=== PATIENT | female | born 1965 | race Caucasian/White ===

== ENCOUNTER 2016-08-10 18:44 | Emergency (ER) | payer OTHER ==
--- NOTE | 2016-08-10 21:27 | ED NURSING NOTES ---
Clinical Report - Nurses [facility] [address] [place] [address] 08/10/2016 18:45 Patient: MICHAEL VEGA TRIAGE Triage time 1845. Acuity: LEVEL 4. Chief Complaint: INJURY TO RIGHT ANKLE. --18:58 Giovana Garcia R.N. 18:54 08/10/16. BP: 149/82. HR: 84. RR: 18. O2 saturation: 100%. Temp: 98.2 F. Pain level now 10. --18:58 Giovana Garcia R.N. Weight: 99.7 kg stated. Height/Length: 62.5 inches Per Patient. BMI: 39.6. --18:54 Giovana Garcia R.N. Medications Advil 800mg at 1700. --18:58 Giovana Garcia R.N. Immatrex last night. --18:58 Giovana Garcia R.N. Allergies No Known Drug Allergy. --18:57 Giovana Garcia R.N. History Arrived by private vehicle. Historian: patient. Accompanied by friend. Primary physician (jorge). Mechanism of injury: sustained a twisting injury. Mechanism of injury: fell (down 2 steps around 12 noon today). She has had numbness, tingling, and trouble walking. PAST MEDICAL HX: Last normal menstrual period- jun (nancy menopausal ). ( migranes). SURGERY HX: ( laparoscopy). SOCIAL HX: Never smoker. Occasional alcohol use. No drug use. --18:58 Giovana Garcia R.N. PROBLEMS: no known problems. Interventions ID band on patient. To treatment room. --18:58 Giovana Garcia R.N. PHYSICAL ASSESSMENT 19:00 08/10/16. To room via wheelchair. GENERAL / NEURO / PSYCH: Oriented X 4. Alert. Appears in pain. EXTREMITIES: Limited ROM present. Capillary refill is less than 2 seconds in the extremities. Extremity pulses are within normal limits. Pain with weight bearing. She was unable to bear weight. Right ankle: tenderness and swelling. Limited ROM. SKIN: Skin is warm. --19:00 Giovana Garcia R.N. NURSING PROGRESS NOTES 18:59 08/10/16. Cold pack applied. --18:59 Giovana Garcia R.N. The patient is calm and resting quietly. GENERAL / NEURO / PSYCH: Alert. Oriented X 4. RESPIRATORY: No respiratory distress. SKIN: Skin is warm and dry. Two patient identifiers checked. Call light placed in reach. Bed placed in lowest position. Brakes of bed on. Patient ready for evaluation- chart flagged. --19:44 Federico Rodney R.N. 19:42 08/10/16. BP: 134/67. HR: 101. RR: 16. O2 saturation: 95%. Pain level now: 02/13. --19:44 Federico Rodney R.N. 21:55. Chilo bandage applied to right ankle by [employer]; distal pulses intact, sensation intact and motor function within normal limits (by [facility] tech). --22:01 Federico Rodney R.N. 21:59. Patient fit with crutches (by [facility] tech). --22:01 Federico Rodney R.N. 22:04. The patient is calm and resting quietly. GENERAL / NEURO / PSYCH: Alert. Oriented X 4. RESPIRATORY: No respiratory distress. SKIN: Skin is warm and dry. --22:11 Federico Rodney R.N. DISPOSITION / DISCHARGE Departure time: 22:09. Condition at departure: stable. ( Patient assisted into and wheeled to parking lot). No learning barriers present. Discharge instructions provided and reviewed with the patient. Reviewed medication(s) side effects, precautions, dosing and course information. Prescription(s) given to the patient. Patient verbalized understanding. Written instructions provided in Yoruba. The patient was discharged home and accompanied by family. She left the Emergency Department ambulatory and via private vehicle. Family member driving. FALL RISK ASSESSMENT: Fall risk assessment completed. No fall risk identified. --22:10 Federico Rodney R.N. 21:46 08/10/16. BP: 114/68. HR: 88. RR: 16. O2 saturation: 98% on room air. Pain level now: 11/13. --22:10 Federico Rodney R.N. Locked/Released at 08/10/2016 22:15 by Federico Rodney R.N.
--- NOTE | 2016-08-10 21:27 | ED CLINICAL REPORT ---
Clinical Report - Physicians/Mid Levels [facility] [address] [place] [address] 08/10/2016 18:45 Patient: MICHAEL VEGA Time Seen: 19:39; initial patient contact, initial documentation, patient care assumed. Arrived- By private vehicle. Historian- patient. HISTORY OF PRESENT ILLNESS Chief Complaint: Injury to the right ankle. The injury happened today. Occurred at home. The patient slipped and sustained a twisting injury while stepping down. Patient is experiencing moderate pain. Patient denies injury to the head or neck. No other injury. REVIEW OF SYSTEMS The patient complains of pain on weight bearing. She has had swelling,, tingling, and numbness. No weakness or skin laceration. All systems otherwise negative, except as recorded above. PAST HISTORY Negative. SOCIAL HISTORY Never smoker. Occasional alcohol use. No drug use. No recent travel. Is a local resident. FAMILY HISTORY No significant family medical history. ADDITIONAL NOTES The nursing notes have been reviewed with agreement regarding the chief complaint, HPI, ROS, PMH and patient medications and allergies. PHYSICAL EXAM Vital Signs: 08/10/2016 18:54 BP: 149/82. HR: 84. RR: 18. O2 saturation: 100%. Temp: 98.2 F. Have been reviewed as normal and appear to be correct. Appearance: Alert. Oriented X3. No acute distress. Head: Head atraumatic. Eyes: Pupils equal, round and reactive to light. Eyes normal inspection. Respiratory: No respiratory distress. Skin: Skin intact. Skin warm and dry. Extremities: Ankle injury present. Right lateral ankle: moderate tenderness and swelling of the lateral malleolus. Limited ROM (diminished plantar flexion, dorsiflexion, inversion and eversion). Neurovascular intact distally. No ligamentous laxity present. No joint effusion. No erythema, laceration, abrasion, ecchymosis or puncture wound. No foreign body or deformity. No foot injury. Foot and ankle exam otherwise negative. Extremities otherwise negative. Gait: Abnormal gait. Gait not tested due to pain. Neuro, Vascular and Tendons: Vascular status intact. Sensation intact. Motor intact. Tendon function intact. Neuro: Oriented X 3. No motor deficit. No sensory deficit. Note: isolated injury to ankle. LABS, X-RAYS, AND EKG X-Rays: X-rays are normal and reveal no acute disease (and reviewed by dr troy). Right ankle negative. The X-rays were independently viewed by me. Rt Ankle X-ray: (IMPRESSION: 1. Soft tissue swelling laterally. Electronically Final signed by:Shoaib Obregon MD 08/10/2016 9:44:59 PM). PROGRESS AND PROCEDURES Patient counseled in person regarding the patient's stable condition, test results and diagnosis. 2121. Differential Diagnosis: Other possible considerations: sprain, fx, dislocation. Above considerations are based on history, physical exam and X-Ray data. Differential diagnosis was discussed with patient. Disposition: Discharged home in good and improved condition (21:27). Condition: good and stable. CLINICAL IMPRESSION Sprain of the tibiofibular ligament of the right ankle. INSTRUCTIONS Apply ice for 20 minutes four times a day for two days until better. Don't apply ice directly to skin. Use crutches as needed. Wear elastic wrap (Chilo wrap) as directed for one weeks until better. Elevate affected areas above chest level for two days until better. Warnings: GENERAL WARNINGS: Return or contact your physician immediately if your condition worsens or changes unexpectedly, if not improving as expected, or if other problems arise. Specifically return if problem worsens. Prescription Medications: Motrin 800 mg tablets: take 1 tablet orally every 8 hours as needed for pain. Dispense thirty (30). No refills. Substitution is permissible. Percocet 5 mg/325 mg: take 1 tablet orally every 6 hours as needed for pain. Dispense fifteen (15). No refills. Substitution is permissible. Follow-up: Follow up with your doctor in about one week as needed. Call for an appointment. Summary of care provided to patient. Understanding of the discharge instructions verbalized by patient. (Electronically signed by Elissa Dahl A.R.N.P. 08/10/2016 22:40)
--- NOTE | 2016-08-10 21:27 | ED NURSING NOTES ---
Clinical Report - Nurses [facility] [address] [place] [address] 08/10/2016 18:45 Patient: MICHAEL VEGA TRIAGE Triage time 1845. Acuity: LEVEL 4. Chief Complaint: INJURY TO RIGHT ANKLE. --18:58 Giovana Garcia R.N. 18:54 08/10/16. BP: 149/82. HR: 84. RR: 18. O2 saturation: 100%. Temp: 98.2 F. Pain level now 10. --18:58 Giovana Garcia R.N. Weight: 99.7 kg stated. Height/Length: 62.5 inches Per Patient. BMI: 39.6. --18:54 Giovana Garcia R.N. Medications Advil 800mg at 1700. --18:58 Giovana Garcia R.N. Immatrex last night. --18:58 Giovana Garcia R.N. Allergies No Known Drug Allergy. --18:57 Giovana Garcia R.N. History Arrived by private vehicle. Historian: patient. Accompanied by friend. Primary physician (jorge). Mechanism of injury: sustained a twisting injury. Mechanism of injury: fell (down 2 steps around 12 noon today). She has had numbness, tingling, and trouble walking. PAST MEDICAL HX: Last normal menstrual period- jun (nancy menopausal ). ( migranes). SURGERY HX: ( laparoscopy). SOCIAL HX: Never smoker. Occasional alcohol use. No drug use. --18:58 Giovana Garcia R.N. PROBLEMS: no known problems. Interventions ID band on patient. To treatment room. --18:58 Giovana Garcia R.N. PHYSICAL ASSESSMENT 19:00 08/10/16. To room via wheelchair. GENERAL / NEURO / PSYCH: Oriented X 4. Alert. Appears in pain. EXTREMITIES: Limited ROM present. Capillary refill is less than 2 seconds in the extremities. Extremity pulses are within normal limits. Pain with weight bearing. She was unable to bear weight. Right ankle: tenderness and swelling. Limited ROM. SKIN: Skin is warm. --19:00 Giovana Garcia R.N. NURSING PROGRESS NOTES 18:59 08/10/16. Cold pack applied. --18:59 Giovana Garcia R.N. The patient is calm and resting quietly. GENERAL / NEURO / PSYCH: Alert. Oriented X 4. RESPIRATORY: No respiratory distress. SKIN: Skin is warm and dry. Two patient identifiers checked. Call light placed in reach. Bed placed in lowest position. Brakes of bed on. Patient ready for evaluation- chart flagged. --19:44 Federico Rodney R.N. 19:42 08/10/16. BP: 134/67. HR: 101. RR: 16. O2 saturation: 95%. Pain level now: 02/13. --19:44 Federico Rodney R.N. 21:55. Chilo bandage applied to right ankle by [employer]; distal pulses intact, sensation intact and motor function within normal limits (by [facility] tech). --22:01 Federico Rodney R.N. 21:59. Patient fit with crutches (by [facility] tech). --22:01 Federico Rodney R.N. 22:04. The patient is calm and resting quietly. GENERAL / NEURO / PSYCH: Alert. Oriented X 4. RESPIRATORY: No respiratory distress. SKIN: Skin is warm and dry. --22:11 Federico Rodney R.N. DISPOSITION / DISCHARGE Departure time: 22:09. Condition at departure: stable. ( Patient assisted into and wheeled to parking lot). No learning barriers present. Discharge instructions provided and reviewed with the patient. Reviewed medication(s) side effects, precautions, dosing and course information. Prescription(s) given to the patient. Patient verbalized understanding. Written instructions provided in Maltese. The patient was discharged home and accompanied by family. She left the Emergency Department ambulatory and via private vehicle. Family member driving. FALL RISK ASSESSMENT: Fall risk assessment completed. No fall risk identified. --22:10 Federico Rodney R.N. 21:46 08/10/16. BP: 114/68. HR: 88. RR: 16. O2 saturation: 98% on room air. Pain level now: 11/13. --22:10 Federico Rodney R.N. Locked/Released at 08/10/2016 22:15 by Federico Rodney R.N.
--- NOTE | 2016-08-10 21:28 | ED ORDER SUMMARY ---
..... Patient: MICHAEL VEGA OrderSheet [facility] VisitID: [id number] [address] [place] [address] 51y, F Registration Date/Time: 08/10/2016 ORDER SHEET Weight: 99.7 kg (stated) Allergies: No Known Drug Allergy GENERAL ORDERS: Ankle 3 or 4V Right Urgent (18:59 08/10/2016 DDean R.N. per protocol) (19:14 RFay) Crutches (if needed) (21:28 08/10/2016 HBivens A.R.N.P.) (Ack 21:47 CHagerty ER Counselor Camp) (21:55 CHagerty ER Counselor Camp) Chilo Wrap (21:28 08/10/2016 HBivens A.R.N.P.) (Ack 21:47 CHagerty ER Counselor Camp) (21:55 CHagerty ER Counselor Camp) MEDICATION ORDERS: IV FLUIDS: ORDER SHEET NOTES: [Electronically signed by Federico Rodney R.N. (22:15 08/10/2016)] [Electronically signed by Elissa DahlR.N.P. (22:40 08/10/2016)] [Electronically locked/signed by Federico Rodney R.N. (22:15 08/10/2016)]
--- NOTE | 2016-08-10 21:28 | ED ORDER SUMMARY ---
..... Patient: MICHAEL VEGA OrderSheet [facility] VisitID: [id number] [address] [place] [address] 51y, F Registration Date/Time: 08/10/2016 ORDER SHEET Weight: 99.7 kg (stated) Allergies: No Known Drug Allergy GENERAL ORDERS: Ankle 3 or 4V Right Urgent (18:59 08/10/2016 DDean R.N. per protocol) (19:14 RFay) Crutches (if needed) (21:28 08/10/2016 HBivens A.R.N.P.) (Ack 21:47 CHagerty ER Mission Assessment Specialist) (21:55 CHagerty ER Mission Assessment Specialist) Chilo Wrap (21:28 08/10/2016 HBivens A.R.N.P.) (Ack 21:47 CHagerty ER [facility] Assessment Specialist) (21:55 CHagerty ER [facility] Assessment Specialist) MEDICATION ORDERS: IV FLUIDS: ORDER SHEET NOTES: [Electronically signed by Federico Rodney R.N. (22:15 08/10/2016)] [Electronically signed by Elissa DahlR.N.P. (22:40 08/10/2016)] [Electronically locked/signed by Federico Rodney R.N. (22:15 08/10/2016)]
--- NOTE | 2016-08-10 21:45 | DIAGNOSTIC IMAGING REPORT ---
PROCEDURE: XR ANKLE 3 OR 4 VIEWS - RIGHT INDICATION: TRAUMA/INJURY TECHNIQUE: Four views. COMPARISON: None. FINDINGS: No fracture or dislocation. Normal ankle mortise. Prominent soft tissue swelling laterally. IMPRESSION: 1. Soft tissue swelling laterally.
--- NOTE | 2016-08-10 22:40 | ED MED RECONCILIATION SUMMARY ---
Patient: MICHAEL VEGA Medication Reconciliation Report [facility] VisitID: [id number] [address] [place] [address] 51y, F Registration Date/Time: 08/10/2016 Weight: 99.7 kg Height/Length: (not available) BMI: 39.6 ALLERGIES: No Known Drug Allergy The patient's Home Medications are listed below: THE FOLLOWING MEDICATIONS NEED TO BE RECONCILED: Advil 800mg at 1700 Immatrex last night The source(s) of the original Home Medication information: Not obtained. The following Medications were given to the patient in the Emergency Department: None. The following Medications were prescribed to the patient: Motrin 800 mg tablets: take 1 tablet orally every 8 hours as needed for pain. Dispense thirty (30). No refills. Substitution is permissible. -- Elissa Dahl, A.R.N.P. Percocet 5 mg/325 mg: take 1 tablet orally every 6 hours as needed for pain. Dispense fifteen (15). No refills. Substitution is permissible. -- Elissa Dahl, A.R.N.P.
--- NOTE | 2016-08-10 22:40 | ED MAR SUMMARY ---
..... Medication Administration Record [facility] [address], [place] [id number] Patient: MICHAEL VEGA Visit ID: [id number] 51y, F Weight: 99.7 kg Height/Length: 62.5 in BMI: 39.6 ALLERGIES: No Known Drug Allergy
--- NOTE | 2016-08-10 22:40 | ED MAR SUMMARY ---
..... Medication Administration Record [facility] [address], [place] [id number] Patient: MICHAEL VEGA Visit ID: [id number] 51y, F Weight: 99.7 kg Height/Length: 62.5 in BMI: 39.6 ALLERGIES: No Known Drug Allergy
--- NOTE | 2016-08-10 22:40 | ED MED RECONCILIATION SUMMARY ---
Patient: MICHAEL VEGA Medication Reconciliation Report [facility] VisitID: [id number] [address] [place] [address] 51y, F Registration Date/Time: 08/10/2016 Weight: 99.7 kg Height/Length: (not available) BMI: 39.6 ALLERGIES: No Known Drug Allergy The patient's Home Medications are listed below: THE FOLLOWING MEDICATIONS NEED TO BE RECONCILED: Advil 800mg at 1700 Immatrex last night The source(s) of the original Home Medication information: Not obtained. The following Medications were given to the patient in the Emergency Department: None. The following Medications were prescribed to the patient: Motrin 800 mg tablets: take 1 tablet orally every 8 hours as needed for pain. Dispense thirty (30). No refills. Substitution is permissible. -- Elissa Dahl, A.R.N.P. Percocet 5 mg/325 mg: take 1 tablet orally every 6 hours as needed for pain. Dispense fifteen (15). No refills. Substitution is permissible. -- Elissa Dahl, A.R.N.P.
--- NOTE | 2016-08-10 22:40 | ED DISCHARGE INSTRUCTIONS ---
Patient: MICHAEL VEGA General Instructions [facility] VisitID: [id number] [place] [address] 51y, F Registration Date/Time: 08/10/2016 Sprain of the tibiofibular ligament of the right ankle. INSTRUCTIONS Apply ice for 20 minutes four times a day for two days until better. Don't apply ice directly to skin. Use crutches as needed. Wear elastic wrap (Chilo wrap) as directed for one weeks until better. Elevate affected areas above chest level for two days until better. Warnings: GENERAL WARNINGS: Return or contact your physician immediately if your condition worsens or changes unexpectedly, if not improving as expected, or if other problems arise. Specifically return if problem worsens. Prescription Medications: Motrin 800 mg tablets: take 1 tablet orally every 8 hours as needed for pain. Dispense thirty (30). No refills. Substitution is permissible. Percocet 5 mg/325 mg: take 1 tablet orally every 6 hours as needed for pain. Dispense fifteen (15). No refills. Substitution is permissible. Follow-up: Follow up with your doctor in about one week as needed. Call for an appointment. Summary of care provided to patient. Understanding of the discharge instructions verbalized by patient. ADDITIONAL INFORMATION Sprain, Ankle,With X-Ray A sprain is an injury to the ligaments or capsule that holds a joint together. There are no broken bones. Most sprains take from four to six weeks to heal. If the ligament is completely torn (severe sprain), it can take several months to recover. Mild to moderate sprains may be treated with an elastic wrap or an in-shoe splint to provide support and prevent re-injury. A mild sprain may not require any additional support. A severe sprain may require surgery to repair. Home care The following guidelines will help you care for your injury at home: Stay off the injured leg as much as possible until you can walk on it without pain. If you have a lot of pain with walking, crutches or a walker may be prescribed. (These can be rented or purchased at many pharmacies and surgical or orthopedic supply stores). Follow your doctor's advice regarding when to begin bearing weight on that leg. Keep your leg elevated to reduce pain and swelling. When sleeping, place a pillow under the injured leg. When sitting, support the injured leg so it is level with your waist. This is very important during the first 48 hours. Apply an ice pack (ice cubes in a plastic bag, wrapped in a towel) over the injured area for 20 minutes every 12 hours the first day. You can place the ice pack directly over the splint/cast. If you were given a boot, open it to apply the ice pack. Continue with ice packs 34 times a day for the next two days, then as needed for the relief of pain and swelling. You may use acetaminophen or ibuprofen to control pain, unless another pain medicine was prescribed. If you have chronic liver or kidney disease or ever had a stomach ulcer or GI bleeding, talk with your doctor before using these medicines. You may return to sports after healing, when you can run without pain. A sprained ankle is at risk for re-injury during the first six weeks. During that time, protect your ankle with an in-shoe splint that prevents tilting of your ankle from side to side. This is very important if you do active work or play sports during that time. Follow-up care Any X-rays you had today dont show any broken bones, breaks, or fractures. Sometimes fractures dont show up on the first X-ray. Bruises and sprains can sometimes hurt as much as a fracture. These injuries can take time to heal completely. If your symptoms dont improve or they get worse, talk with your doctor. You may need a repeat X-ray. When to seek medical care Get prompt medical attention if any of the following occur: The plaster cast or splint gets wet or soft The fiberglass cast or splint gets wet and does not dry for 24 hours Pain or swelling increases, or redness appears Toes become cold, blue, numb or tingly Re-injure your ankle Crutch Walking Crutch Adjustment Make sure the crutches you use are adjusted to fit you. When you stand, there should be room to fit 2-3 fingers between the top of the crutch and your armpit. Your elbow should be slightly bent when holding the hand director of community center. Crutch Walking: Place the crutches forward 12" in front of and 6" to the side of your feet. Lean your weight forward as you push down on the handgrips. Your weight should be on your hands and yourstrong leg, not your armpits . Let your body swing through, landing on the strong leg. Advance the crutches forward again. The crutch and the injured leg should move together. Going Up Steps: ("Up with the good") With both crutches on the same step as your feet, push down on the handgrips. Balancing with very light pressure on the weak leg, let your hands support your weight as you raise your strong leg onto the next higher step. Transfer all your weight to your strong leg (still bent) as you move the crutches up to the next step alongside the strong leg. With your weight evenly balanced on the two crutches and your strong leg, straighten your strong knee as you raise the weak leg up to the next step. Going Down Steps: ("Down with the bad") With both crutches on the same step as your feet, push down on the handgrips. With your weight evenly balanced on the two crutches and your strong leg, bend your strong knee as you lower the weak leg down to the next step. Let your strong leg support you (still bent) as you move the crutches down alongside the weak leg. Transfer your weight to your hands, balancing with very light pressure on the weak leg as you lower your strong leg alongside your weak leg. Chilo Wrap An "Chilo Bandage" refers to any elastic bandage wrap (2-6" wide). This is used to apply support and compression to an arm or leg. It will help prevent or reduce swelling also. When applying the bandage, it should not be stretched too tightly. A tight Chilo Wrap will reduce circulation and cause tingling or numbness in the hand or foot. It may increase the pain under the bandage. If you get these symptoms, remove the wrap and rest the limb. Symptoms should go away within 1-2 hours. Once symptoms go away, reapply the bandage with less stretch. If symptoms do not go away after 1-2 hours with the bandage off, call your doctor or return to this facility promptly. Ibuprofen Oral tablet What is this medicine? IBUPROFEN (eye BYOO proe fen) is a non-steroidal anti-inflammatory drug (NSAID). It is used for dental pain, fever, headaches or migraines, osteoarthritis, rheumatoid arthritis, or painful monthly periods. It can also relieve minor aches and pains caused by a cold, flu, or sore throat. How should I use this medicine? Take this medicine by mouth with a glass of water. Follow the directions on the prescription label. Take this medicine with food if your stomach gets upset. Try to not lie down for at least 10 minutes after you take the medicine. Take your medicine at regular intervals. Do not take your medicine more often than directed. A special MedGuide will be given to you by the pharmacist with each prescription and refill. Be sure to read this information carefully each time. Talk to your safe and vault installer regarding the use of this medicine in children. Special care may be needed. What side effects may I notice from receiving this medicine? Side effects that you should report to your doctor or health care program resident as soon as possible: allergic reactions like skin rash, itching or hives, swelling of the face, lips, or tongue black or bloody stools, blood in the urine or in vomit breathing problems changes in vision chest pain general ill feeling or flu-like symptoms nausea or vomiting redness, blistering, peeling or loosening of the skin, including inside the mouth slurred speech or weakness on one side of the body stomach pain unexplained weight gain or swelling unusually weak or tired yellowing of eyes or skin Side effects that usually do not require medical attention (report to your doctor or health care program resident if they continue or are bothersome): constipation or diarrhea dizziness gas or heartburn stomach upset What may interact with this medicine? Do not take this medicine with any of the following medications: cidofovir ketorolac methotrexate pemetrexed This medicine may also interact with the following medications: alcohol aspirin diuretics lithium other drugs for inflammation like prednisone warfarin What if I miss a dose? If you miss a dose, take it as soon as you can. If it is almost time for your next dose, take only that dose. Do not take double or extra doses. Where should I keep my medicine? Keep out of the reach of children. Store at room temperature between 15 and 30 degrees C (59 and 86 degrees F). Keep container tightly closed. Throw away any unused medicine after the expiration date. What should I tell my health care provider before I take this medicine? They need to know if you have any of these conditions: asthma cigarette smoker drink more than 3 alcohol containing drinks a day heart disease or circulation problems such as heart failure or leg edema (fluid retention) high blood pressure kidney disease liver disease stomach bleeding or ulcers an unusual or allergic reaction to ibuprofen, aspirin, other NSAIDS, other medicines, foods, dyes, or preservatives or trying to get breast-feeding What should I watch for while using this medicine? Tell your doctor or healthcare professional if your symptoms do not start to get better or if they get worse. This medicine does not prevent heart attack or stroke. In fact, this medicine may increase the chance of a heart attack or stroke. The chance may increase with longer use of this medicine and in people who have heart disease. If you take aspirin to prevent heart attack or stroke, talk with your doctor or health care program resident. Do not take other medicines that contain aspirin, ibuprofen, or naproxen with this medicine. Side effects such as stomach upset, nausea, or ulcers may be more likely to occur. Many medicines available without a prescription should not be taken with this medicine. This medicine can cause ulcers and bleeding in the stomach and intestines at any time during treatment. Ulcers and bleeding can happen without warning symptoms and can cause . To reduce your risk, do not smoke cigarettes or drink alcohol while you are taking this medicine. You may get drowsy or dizzy. Do not drive, use machinery, or do anything that needs mental alertness until you know how this medicine affects you. Do not stand or sit up quickly, especially if you are an older patient. This reduces the risk of dizzy or fainting spells. This medicine can cause you to bleed more easily. Try to avoid damage to your teeth and gums when you brush or floss your teeth. Oxycodone Hydrochloride, Acetaminophen Oral tablet What is this medicine? ACETAMINOPHEN; OXYCODONE (a set a NARCISO jus fen; ox i KOE done) is a pain reliever. It is used to treat mild to moderate pain. How should I use this medicine? Take this medicine by mouth with a full glass of water. Follow the directions on the prescription label. Take your medicine at regular intervals. Do not take your medicine more often than directed. Talk to your safe and vault installer regarding the use of this medicine in children. Special care may be needed. Patients over 65 years old may have a stronger reaction and need a smaller dose. What side effects may I notice from receiving this medicine? Side effects that you should report to your doctor or health care program resident as soon as possible: allergic reactions like skin rash, itching or hives, swelling of the face, lips, or tongue breathing difficulties, wheezing confusion light headedness or fainting spells severe stomach pain yellowing of the skin or the whites of the eyes Side effects that usually do not require medical attention (report to your doctor or health care program resident if they continue or are bothersome): dizziness drowsiness nausea vomiting What may interact with this medicine? alcohol antihistamines barbiturates like amobarbital, butalbital, butabarbital, methohexital, pentobarbital, phenobarbital, thiopental, and secobarbital benztropine drugs for bladder problems like solifenacin, trospium, oxybutynin, tolterodine, hyoscyamine, and methscopolamine drugs for breathing problems like ipratropium and tiotropium drugs for certain stomach or intestine problems like propantheline, homatropine methylbromide, glycopyrrolate, atropine, belladonna, and dicyclomine general anesthetics like etomidate, ketamine, nitrous oxide, propofol, desflurane, enflurane, halothane, isoflurane, and sevoflurane medicines for depression, anxiety, or psychotic disturbances medicines for sleep muscle relaxants naltrexone narcotic medicines (opiates) for pain phenothiazines like perphenazine, thioridazine, chlorpromazine, mesoridazine, fluphenazine, prochlorperazine, promazine, and trifluoperazine scopolamine tramadol trihexyphenidyl What if I miss a dose? If you miss a dose, take it as soon as you can. If it is almost time for your next dose, take only that dose. Do not take double or extra doses. Where should I keep my medicine? Keep out of the reach of children. This medicine can be abused. Keep your medicine in a safe place to protect it from theft. Do not share this medicine with anyone. Selling or giving away this medicine is dangerous and against the law. Store at room temperature between 20 and 25 degrees C (68 and 77 degrees F). Keep container tightly closed. Protect from light. This medicine may cause accidental overdose and if it is taken by other adults, children, or pets. Flush any unused medicine down the toilet to reduce the chance of harm. Do not use the medicine after the expiration date. What should I tell my health care provider before I take this medicine? They need to know if you have any of these conditions: brain tumor Crohn's disease, inflammatory bowel disease, or ulcerative colitis drink more than 3 alcohol containing drinks per day drug abuse or addiction head injury heart or circulation problems kidney disease or problems going to the bathroom liver disease lung disease, asthma, or breathing problems an unusual or allergic reaction to acetaminophen, oxycodone, other opioid analgesics, other medicines, foods, dyes, or preservatives or trying to get breast-feeding What should I watch for while using this medicine? Tell your doctor or health care program resident if your pain does not go away, if it gets worse, or if you have new or a different type of pain. You may develop tolerance to the medicine. Tolerance means that you will need a higher dose of the medication for pain relief. Tolerance is normal and is expected if you take this medicine for a long time. Do not suddenly stop taking your medicine because you may develop a severe reaction. Your body becomes used to the medicine. This does NOT mean you are addicted. Addiction is a behavior related to getting and using a drug for a non-medical reason. If you have pain, you have a medical reason to take pain medicine. Your doctor will tell you how much medicine to take. If your doctor wants you to stop the medicine, the dose will be slowly lowered over time to avoid any side effects. You may get drowsy or dizzy. Do not drive, use machinery, or do anything that needs mental alertness until you know how this medicine affects you. Do not stand or sit up quickly, especially if you are an older patient. This reduces the risk of dizzy or fainting spells. Alcohol may interfere with the effect of this medicine. Avoid alcoholic drinks. There are different types of narcotic medicines (opiates) for pain. If you take more than one type at the same time, you may have more side effects. Give your health care provider a list of all medicines you use. Your doctor will tell you how much medicine to take. Do not take more medicine than directed. Call emergency for help if you have problems breathing. The medicine will cause constipation. Try to have a bowel movement at least every 2 to 3 days. If you do not have a bowel movement for 3 days, call your doctor or health care program resident. Do not take Tylenol (acetaminophen) or medicines that have acetaminophen with this medicine. Too much acetaminophen can be very dangerous. Many nonprescription medicines contain acetaminophen. Always read the labels carefully to avoid taking more acetaminophen. You have been given the following additional information: Sprain, Ankle, With X-Ray Crutch Walking Chilo Wrap Ibuprofen Oral tablet Oxycodone Hydrochloride, Acetaminophen Oral tablet (Electronically signed by Elissa Dahl A.R.N.P. 08/10/2016 22:40)
== END 2016-08-10 22:09 | disposition home or self-care (01) ==
LOC: ED SRH 18:44
DX: S93.431A Sprain of tibiofibular ligament of right ankle, initial encounter (principal); W10.9XXA Fall (on) (from) unspecified stairs and steps, initial encounter; Y93.9 Activity, unspecified; Y92.009 Unspecified place in unspecified non-institutional (private) residence as the place of occurrence of the external cause; Y99.9 Unspecified external cause status